=== PATIENT | female | born 1980 | race Caucasian/White ===

== ENCOUNTER 2016-08-07 10:38 | Emergency (ER) | payer SELFPAY ==
[~2016-08-07] VITALS: Ht 165.1 cm; Wt 118.0 kg
[~2016-08-07 10:38] MED LIST: ASPIR-LOW81 MG PO; ATARAX,VISTARIL25 MG PO; MOTRIN800 MG PO; NOHOMEMEDS; REGLAN10 MG PO; ULTRAM50 MG PO; ZANTAC75 M1 PO; ~No Medications
[2016-08-07] MEDS ORDERED: ZOLOFT50 MG PO (11:27)
[2016-08-07] MEDS ORDERED: AUGMENTIN875 MG PO (12:05)
[2016-08-07] MEDS ORDERED: MOTRIN600 MG PO (12:05)
[2016-08-07 12:15] VITALS: BP 134/99
== END 2016-08-07 12:16 | disposition home or self-care (01) ==
LOC: EME 10:38 → EXP 10:38
DX: H66.91 Otitis media, unspecified, right ear (principal)
CPT/HCPCS: 99281; 99284